=== PATIENT | female | born 1950 | race Caucasian/White ===

== ENCOUNTER 2023-01-22 09:56 | Inpatient (IN) | payer MEDICARE ==
[2023-01-22 10:49] LABS: Basophils % (A) 1 %; Eosinophils % (A) 1 %; HCT 39.7 % (34.0-46.0); HGB 13.4 gm/dL (11.4-16.0); Lymphocytes % (A) 29 %; MCH 31.9 pg (25.0-35.0); MCHC 33.7 g/dL (31.0-37.0); MCV 94.8 fL (80.0-100.0); Mean Platelet Volume 7.9; Monocytes # (A) 0.2 k/uL (0-1.0); Monocytes % (A) 6 %; Neutrophils # (A) 2.2 k/uL (1.3-7.7); Neutrophils % (A) 62 %; Platelet Count 210 k/uL (150-450); RBC 4.19 m/uL (3.80-5.40); WBC 3.6 k/uL (3.8-10.6)
--- NOTE | 2023-01-22 10:51 | XR ---
EXAMINATION TYPE: XR chest 2V DATE OF EXAM: 01/22/2023 COMPARISON: NONE HISTORY: Chest pressure. TECHNIQUE: Frontal and lateral views of the chest are obtained. FINDINGS: There is no focal air space opacity, pleural effusion, or pneumothorax seen. The cardiac silhouette size is within normal limits. The osseous structures are intact. IMPRESSION: No acute cardiopulmonary process.
[2023-01-22 11:03] LABS: INR 0.9 (<1.2)
[2023-01-22 11:04] LABS: Partial Thromboplastin Time 22.7 sec (22.0-30.0); Prothrombin Time 10.4 sec (10.0-12.5)
[2023-01-22 11:05] LABS: ALT 27 U/L (4-34); AST 28 U/L (14-36); African American GFR (CKD) 87 (>60 ml/min/1.73 sqM); Albumin 4.2 g/dL (3.5-5.0); Alkaline Phosphatase 81 U/L (38-126); Anion Gap 6 mmol/L; Blood Urea Nitrogen 19 mg/dL (7-17); Calcium 9.3 mg/dL (8.4-10.2); Carbon Dioxide 28 mmol/L (22-30); Chloride 105 mmol/L (98-107); Glucose 101 mg/dL (74-99); Magnesium 1.9 mg/dL (1.6-2.3); Non-African American GFR(CKD) 75 (>60 ml/min/1.73 sqM); Potassium 4.1 mmol/L (3.5-5.1); Sodium 139 mmol/L (137-145); Total Bilirubin 0.6 mg/dL (0.2-1.3); Total Protein 6.9 g/dL (6.3-8.2)
[2023-01-22 11:12] LABS: NT-Pro-B-Type Natriuretic Pept 151 pg/mL
--- NOTE | 2023-01-22 11:56 | ED ---
Chest Pain HPI - General Chief Complaint: Chest Pain Stated Complaint: chest pain Time Seen by Provider: 01/22/23 09:59 Source: patient, EMS - History of Present Illness Initial Comments: 72-year-old female with past history of hypertension presents to the emergency department reporting chest pain. States that she has had left-sided chest pain for a long time. It makes her short of breath. States that the shortness of breath was previously only with exertion however her shortness of breath has now become with arrests. She denies any history of cardiac issues. No history of DVT or PE. She did see her primary care earlier this week and told them about the chest pain. They told her that she needed to come to the hospital should she have recurrence of her symptoms. She does not have any cardiac history however her father did in his 50s due to a sudden heart attack. Patient describes the pain as a pressure sensation. This morning she awoke at 5 AM with significant chest pain that she states is somewhat more severe in nature than what she has been previously experiencing. She has not had a cardiac workup. She denies fevers, chills or cough. No numbness or tingling in her extremities. EMS provided the patient with aspirin and 2 nitros en route to the hospital. No other alleviating, precipitating or modifying factors - Related Data Home Medications Medication Instructions Recorded Confirmed atenoloL 100 mg PO DAILY 01/22/23 01/22/23 Allergies Allergy/AdvReac Type Severity Reaction Status Date / Time latex Allergy Rash/Hives Verified 01/22/23 11:10 Review of Systems ROS Statement: Those systems with pertinent positive or pertinent negative responses have been documented in the HPI. ROS Other: All systems not noted in ROS Statement are negative. Past Medical History Past Medical History: Hypertension History of Any Multi-Drug Resistant Organisms: None Reported Past Psychological History: No Psychological Hx Reported Smoking Status: Never smoker Past Alcohol Use History: None Reported Past Drug Use History: None Reported General Exam General appearance: alert, in no apparent distress Head exam: Present: atraumatic, normocephalic, normal inspection Eye exam: Present: normal appearance, PERRL, EOMI. Absent: scleral icterus, conjunctival injection, periorbital swelling ENT exam: Present: normal exam, mucous membranes moist Neck exam: Present: normal inspection. Absent: tenderness, meningismus, lymphadenopathy Respiratory exam: Present: normal lung sounds bilaterally. Absent: respiratory distress, wheezes, rales, rhonchi, stridor Cardiovascular Exam: Present: regular rate, normal rhythm, normal heart sounds. Absent: systolic murmur, diastolic murmur, rubs, gallop, clicks GI/Abdominal exam: Present: soft, normal bowel sounds. Absent: distended, tenderness, guarding, rebound, rigid Extremities exam: Present: normal inspection, full ROM, normal capillary refill. Absent: tenderness, pedal edema, joint swelling, calf tenderness Back exam: Present: normal inspection Neurological exam: Present: alert, oriented X3, CN II-XII intact Psychiatric exam: Present: normal affect, normal mood Skin exam: Present: warm, dry, intact, normal color. Absent: rash Course Vital Signs 01/22/23 01/22/23 10:01 13:03 Temperature 98 F Pulse Rate 66 58 L Respiratory 18 14 Rate Blood Pressure 165/104 138/85 O2 Sat by Pulse 99 98 Oximetry Chest Pain MDM - MDM Was pt. sent in by a medical professional or institution (JOHAN Lin, MANUAL MACHINIST, urgent care, hospital, or group home...) When possible be specific @ -No Did you speak to anyone other than the patient for history (EMS, parent, family, police, friend...)? What history was obtained from this source @ -EMS Did you review nursing and triage notes (agree or disagree)? Why? @ -I reviewed and agree with nursing and triage notes Were old charts reviewed (outside hosp., previous admission, EMS record, old EKG, old radiological studies, urgent care reports/EKG's, group home records)? Report findings @ -No old charts were reviewed Differential Diagnosis (chest pain, altered mental status, abdominal pain women, abdominal pain men, vaginal bleeding, weakness, fever, dyspnea, syncope, headache, dizziness, GI bleed, back pain, seizure, CVA, palpatations, mental health, musculoskeletal)? @ -Differential Chest Pain: Stable Angina, Unstable Angina, STEMI, NSTEMI Aortic Dissection, Pneumothorax, Musculoskeletal, Esophageal Spasm GERD, Cholecystitis, Pancreatitis, Zoster, this is not meant to be an all-inclusive list. EKG interpreted by me (3pts min.). @ -yes and demonstrates sinus bradycardia with a rate of 57. AL interval 167. QRS is 93. QTC of 440. No acute ST segment elevation or depression X-rays interpreted by me (1pt min.). @ -Yes and demonstrates no acute process CT interpreted by me (1pt min.). @ -None done U/S interpreted by me (1pt. min.). @ -None done What testing was considered but not performed or refused? (CT, X-rays, U/S, labs)? Why? @ -None What meds were considered but not given or refused? Why? @ -None Did you discuss the management of the patient with other professionals (professionals i.e. DrJose, PA, MANUAL MACHINIST, lab, RT, psych nurse, social sciences department chair, reduction plant supervisor, teacher, customs patrol officer, field nurse case manager)? Give summary @ -Dr. Gomez who will admit patient Was smoking cessation discussed for >3mins.? @ -No Was critical care preformed (if so, how long)? @ -No Were there social determinants of health that impacted care today? How? (Homelessness, low income, unemployed, alcoholism, drug addiction, transportation, low edu. Level, literacy, decrease access to med. care, nursing home, rehab)? @ -No Was there de-escalation of care discussed even if they declined (Discuss DNR or withdrawal of care, Hospice)? DNR status @ -No What co-morbidities impacted this encounter? (DM, HTN, Smoking, COPD, CAD, Cancer, CVA, ARF, Chemo, Hep., AIDS, mental health diagnosis, sleep apnea, morbid obesity)? @ -hypertension Was patient admitted / discharged? Hospital course, mention meds given and route, prescriptions, significant lab abnormalities, going to OR and other pertinent info. @ -Admitted. Upon arrival patient was placed into room 8. Thorough history and physical exam was performed. Symptoms are concerning for unstable angina. 12-lead EKG is obtained. Patient remains on continuous pulse ox and cardiac monitoring. 12-lead EKG is within normal limits. Chest x-ray demonstrates no acute process. I did recommend overnight observation for further cardiac workup which the patient agreed to. I spoke with Dr. Gomez who was willing to keep the patient. Patient's awaiting a bed on the floor in stable condition Undiagnosed new problem with uncertain prognosis? @ -Yes Drug Therapy requiring intensive monitoring for toxicity (Heparin, Nitro, Insulin, Cardizem)? @ -No Were any procedures done? @ -No Diagnosis/symptom? @ -Acute chest pain, possible ACS Acute, or Chronic, or Acute on Chronic? @ -Acute Uncomplicated (without systemic symptoms) or Complicated (systemic symptoms)? @ -Complicated Side effects of treatment? @ -No Exacerbation, Progression, or Severe Exacerbation? @ -No Poses a threat to life or bodily function? How? (Chest pain, [place], [place], pneumonia, PE, COPD, DKA, ARF, appy, cholecystitis, CVA, Diverticulitis, Homicidal, Suicidal, threat to staff... and all critical care pts) @ -Yes as patient presents with chest pain Disposition Clinical Impression: Chest pain Disposition: ADMITTED IP TO THIS [facility] Condition: Stable Is patient prescribed a controlled substance at d/c from ED?: No Time of Disposition: 12:26 Decision to Admit Reason: Admit from EC Decision Date: 01/22/23 Decision Time: 12:26
[2023-01-22] MEDS ORDERED: NALOXONE 0.4 MG/ML 1 ML VIAL IV PRN (12:27)
--- NOTE | 2023-01-22 13:43 | P.HPIM ---
History of Present Illness Patient is a pleasant 72-year-old female came in with the complaints of chest pain on and off has been going on for last few days in the midsternal area radiates to the back, along with associated lightheadedness denied any diaphores is. Patient believes that the this pain may have radiated to the jaw patient has mild to moderate pain. Patient has family history of coronary artery disease in her dad at age 67. Troponins are negative EKG did not show any ST-T wave changes. Patient also has neck issues. Patient has been in having stress at home as well recently and she believes that may have contributed to her symptoms. REVIEW OF SYSTEMS: CONSTITUTIONAL: No fever, no malaise, no fatigue. HEENT: No recent visual problems or hearing problems. Denied any sore throat. CARDIOVASCULAR: No orthopnea, PND, no palpitations, no syncope. PULMONARY: No shortness of breath, no cough, no hemoptysis. GASTROINTESTINAL: No diarrhea, no nausea, no vomiting, no abdominal pain. NEUROLOGICAL: No headaches, no weakness, no numbness. HEMATOLOGICAL: Denies any bleeding or petechiae. GENITOURINARY: Denies any burning micturition, frequency, or urgency. MUSCULOSKELETAL/RHEUMATOLOGICAL: Denies any joint pain, swelling, or any muscle pain. ENDOCRINE: Denies any polyuria or polydipsia. The rest of the 14-point review of systems is negative. PHYSICAL EXAMINATION: GENERAL: The patient is alert and oriented x3, not in any acute distress. Well developed, well nourished. HEENT: Pupils are round and equally reacting to light. EOMI. No scleral icterus. No conjunctival pallor. Normocephalic, atraumatic. No pharyngeal erythema. No thyromegaly. CARDIOVASCULAR: S1 and S2 present. No murmurs, rubs, or gallops. PULMONARY: Chest is clear to auscultation, no wheezing or crackles. ABDOMEN: Soft, nontender, nondistended, normoactive bowel sounds. No palpable organomegaly. MUSCULOSKELETAL: No joint swelling or deformity. EXTREMITIES: No cyanosis, clubbing, or pedal edema. NEUROLOGICAL: Gross neurological examination did not reveal any focal deficits. SKIN: No rashes. Assessment and plan -Chest pain: We will rule out a concurrent syndromes with a repeat troponins and EKGs. Patient the chest pain appears to be mostly atypical appears to be musculoskeletal in nature cardiology will evaluate the patient. -Hypertension patient is on atenolol which will be resumed believing that the patient will undergo nuclear stress test if deemed necessary by cardiology. DVT prophylaxis: Early ambulation Past Medical History Past Medical History: Hypertension History of Any Multi-Drug Resistant Organisms: None Reported Past Psychological History: No Psychological Hx Reported Smoking Status: Never smoker Past Alcohol Use History: None Reported Past Drug Use History: None Reported Medications and Allergies Home Medications Medication Instructions Recorded Confirmed Type atenoloL 100 mg PO DAILY 01/22/23 01/22/23 History Allergies Allergy/AdvReac Type Severity Reaction Status Date / Time latex Allergy Rash/Hives Verified 01/22/23 11:10 Physical Exam Vitals: Vital Signs Temp Pulse Resp BP Pulse Ox 01/22/23 13:03 58 L 14 138/85 98 01/22/23 10:01 98 F 66 18 165/104 99 Intake and Output 01/21/23 01/22/23 01/22/23 22:59 06:59 14:59 Other: Weight 74.843 kg Results CBC & Chem 7: 01/22/23 10:20 01/22/23 10:20 Labs: Abnormal Lab Results - Last 24 Hours (Table) 01/22/23 01/22/23 Range/Units 10:20 10:20 WBC 3.6 L (3.8-10.6) k/uL BUN 19 H (7-17) mg/dL Glucose 101 H (74-99) mg/dL
--- NOTE | 2023-01-23 08:27 | P.CRDCN ---
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 She has a past medical history of hypertension. Patient states that she has had chest pain all the time but not pressure. She states she woke up at 5 AM with a pressure type sensation along with difficulty breathing and cough. Patient states that she is feeling normal at this time of evaluation. EKG sinus rhythm with poor R-wave progression Chest x-ray: No acute findings WBC 3.6 hemoglobin 13.4. Electrolytes normal. BUN 19 creatinine 0.8. Troponin negative 3. Glucose 101. The knees and 1.9. Liver function tests normal. Home cardiac medications: Atenolol 100 mg daily Review Of Systems: At the time of my evaluation: Constitutional: No fever, no chills. No weakness, fatigue or lethargy. EENT: No headache. No dizziness. Lungs: No shortness of breath, cough, no sputum production. No wheezing. Cardiovascular: No chest pain, no lower extremity edema. No palpitations. No paroxysmal nocturnal dyspnea. No orthopnea. No lightheadedness or dizziness. No syncopal episodes. Abdominal: No abdominal pain. No nausea, vomiting. No diarrhea. No constipation. No bloody or tarry stools. Genitourinary: No dysuria.. No urinary retention. Musculoskeletal: No myalgias. No muscle weakness, no frequent falls. No back pain. No neck pain. Integumentary: No wounds. No rash. No unusual bruising. Neurologic: No aphasia. No facial droop. No change in mentation. No head injury. No headache. Physical examination: Gen: This is a 72-year-old female. She is resting but appears to be comfortable and in no acute distress. VS: reviewed HEENT: Head is atraumatic, normocephalic. Pupils equal, round. Sclerae is anicteric. NECK: Supple. No JVD. LUNGS: Clear to auscultation. No wheezes or rhonchi. No intercostal retractions. HEART: Regular rate and rhythm. No murmur. ABDOMEN: Soft No tenderness. EXTREMITIES: No pedal edema. No calf tenderness. NEUROLOGICAL: Patient is awake, alert and oriented x3. Assessment: Atypical chest pain Hypertension Plan: Continue atenolol Obtain stress echo. Obtain 2-D echocardiogram and Doppler study to assess cardiac structure and function If testing is unremarkable, patient will be cleared for discharged home today. Thank you kindly for this consultation. Nurse practitioner note has been reviewed, I agree with documented findings and plan of care. Patient was seen and examined. Past Medical History Past Medical History: Hypertension History of Any Multi-Drug Resistant Organisms: None Reported Past Surgical History: Cholecystectomy Past Psychological History: No Psychological Hx Reported Smoking Status: Never smoker Past Alcohol Use History: None Reported Past Drug Use History: None Reported Medications and Allergies Home Medications Medication Instructions Recorded Confirmed Type atenoloL 100 mg PO DAILY 01/22/23 01/22/23 History Allergies Allergy/AdvReac Type Severity Reaction Status Date / Time latex Allergy Rash/Hives Verified 01/22/23 11:10 Physical Exam Vitals: Vital Signs Temp Pulse Pulse Resp BP BP Pulse Ox 01/23/23 07:00 97.8 F 52 L 16 136/78 98 01/23/23 01:57 98.1 F 65 17 102/60 98 01/22/23 20:48 97.6 F 62 15 151/81 98 01/22/23 16:19 53 L 14 142/81 97 01/22/23 13:03 58 L 14 138/85 98 01/22/23 10:01 98 F 66 18 165/104 99 Intake and Output 01/22/23 01/23/23 01/23/23 22:59 06:59 14:59 Other: # Voids 2 2 Results 01/22/23 10:20 01/22/23 10:20 Cardiac Enzymes 01/22/23 01/22/23 01/22/23 Range/Units 10:20 10:20 15:27 AST 28 (14-36) U/L Troponin I <0.012 <0.012 (0.000-0.034) ng/mL 01/22/23 Range/Units 17:37 AST (14-36) U/L Troponin I <0.012 (0.000-0.034) ng/mL Coagulation 01/22/23 Range/Units 10:20 PT 10.4 (10.0-12.5) sec APTT 22.7 (22.0-30.0) sec CBC 01/22/23 Range/Units 10:20 WBC 3.6 L (3.8-10.6) k/uL RBC 4.19 (3.80-5.40) m/uL Hgb 13.4 (11.4-16.0) gm/dL Hct 39.7 (34.0-46.0) % Plt Count 210 (150-450) k/uL Comprehensive Metabolic Panel 01/22/23 Range/Units 10:20 Sodium 139 (137-145) mmol/L Potassium 4.1 (3.5-5.1) mmol/L Chloride 105 (98-107) mmol/L Carbon Dioxide 28 (22-30) mmol/L BUN 19 H (7-17) mg/dL Creatinine 0.80 (0.52-1.04) mg/dL Glucose 101 H (74-99) mg/dL Calcium 9.3 (8.4-10.2) mg/dL AST 28 (14-36) U/L ALT 27 (4-34) U/L Alkaline Phosphatase 81 (38-126) U/L Total Protein 6.9 (6.3-8.2) g/dL Albumin 4.2 (3.5-5.0) g/dL Current Medications Generic Name Dose Route Start Last Admin Trade Name Freq PRN Reason Stop Dose Admin Atenolol 100 mg 01/23/23 09:00 Atenolol 50 Mg Tab PO DAILY KAILASH Naloxone HCl 0.2 mg 01/22/23 12:27 Naloxone 0.4 Mg/Ml 1 Ml Vial IV Q2M PRN Opioid Reversal Intake and Output 01/22/23 01/23/23 01/23/23 22:59 06:59 14:59 Other: # Voids 2 2 01/22/23 10:20 01/22/23 10:20
[2023-01-23] MEDS ORDERED: atenoloL 50 MG TAB PO SCH (09:00)
--- NOTE | 2023-01-23 11:41 | CA ---
Transthoracic Echo Report Name: Felisha Croft Age: 72 Gender: F : 1950 Exam Date: 01/23/2023 10:48 Exam Location: [facility] Ht (in): 62 Wt (lb): 165 Ordering Physician: Patt Ferrell DO Attending/Referring Phys: [id number], Ghassan Development Scientist Marian Johnson RDCS Procedure CPT: Indications: Chest Pain Cardiac Hx: Technical Quality: Fair Contrast 1: Total Dose (mL): Contrast 2: Total Dose (mL): MEASUREMENTS (Male / Female) Normal Values 2D ECHO LV Diastolic Diameter PLAX 3.6 cm 4.2 - 5.9 / 3.9 - 5.3 cm LV Systolic Diameter PLAX 2.3 cm IVS Diastolic Thickness 1.3 cm 0.6 - 1.0 / 0.6 - 0.9 cm LVPW Diastolic Thickness 1.3 cm 0.6 - 1.0 / 0.6 - 0.9 cm LV Relative Wall Thickness 0.8 LA Volume 65.7 cm??? 18 - 58 / 22 - 52 cm??? LA Volume Index 35.8 cm???/m??? 16 - 28 cm???/m??? M-MODE Aortic Root Diameter MM 2.8 cm LA Systolic Diameter MM 4.4 cm LA Ao Ratio MM 1.6 AV Cusp Separation MM 1.3 cm DOPPLER AV Peak Velocity 166.0 cm/s AV Peak Gradient 11.0 mmHg AV Mean Velocity 117.5 cm/s AV Mean Gradient 6.0 mmHg AV Velocity Time Integral 34.9 cm AI Peak Velocity 385.6 cm/s AI Peak Gradient 59.5 mmHg AI Pressure Half Time 583.5 ms LVOT Peak Velocity 99.0 cm/s LVOT Peak Gradient 3.9 mmHg LVOT Velocity Time Integral 21.8 cm MV Area PHT 3.0 cm??? Mitral E Point Velocity 72.6 cm/s Mitral A Point Velocity 104.7 cm/s Mitral E to A Ratio 0.7 MV Deceleration Time 255.1 ms MV E' Velocity 4.9 cm/s Mitral E to MV E' Ratio 14.8 TR Peak Velocity 260.1 cm/s TR Peak Gradient 27.1 mmHg Right Ventricular Systolic Press 32.1 mmHg FINDINGS Left Ventricle Moderately increased left ventricular wall thickness. Left ventricular cavity size normal. Normal left ventricular systolic function with no obvious regional wall motion abnormalities. Left ventricular ejection fraction is estimated at 55-60 %. Right Ventricle Normal right ventricular size and function. Right ventricular systolic pressure within normal limits. Right Atrium Normal right atrial size. Left Atrium Moderately increased left atrial volume. Mildly increased left atrial area. Interatrial septal aneurysm. Probable patent foramen ovale. Mitral Valve Structurally normal mitral valve. Mitral valve thickened. Mild mitral annular calcification. [id number] mitral regurgitation. Aortic Valve Trileaflet aortic valve. No aortic stenosis. Mild aortic regurgitation. Tricuspid Valve Structurally normal tricuspid valve. Mild tricuspid regurgitation. Pulmonic Valve Structurally normal pulmonic valve. Trace pulmonic regurgitation. Pericardium No pericardial effusion. Aorta Normal size aortic root and proximal ascending aorta. CONCLUSIONS Normal LV systolic function Aneurysmal interatrial septum Mild to moderate mitral regurgitation Possible [id number] shunt across intra-atrial septum Mild aortic regurgitation Previewed by: Dr. Chano Soni MD (Electronically Signed) Final Date: 23 January 2023 11:40
--- NOTE | 2023-01-23 12:32 | CA ---
Stress Echo Report Felisha Croft Age: 72 Gender: F : 1950 Exam Date: 01/23/2023 10:28 Exam Location: [place] [facility] Ht (in): 62 Wt (lb): 165 Ordering Physician: Oriana Ashby Referring Physician: [id number] Substance Abuse Nurse: Calvin Booker Technologist Procedure CPT: Indication: CP ICD-9 Codes: Rhythm: Patient History: Cardiac Medications: SEE CHART Medications in past 24 hours: Contrast: N/A Stress Results Protocol: Ameya Total dose(mL): Exercise Duration (min:sec): 7:[address] Depression (mm): Angina Score: Brandon Score: METS: 8.3 Resting HR: 80 Resting BP: 111 / 67 Peak HR: 119 Peak BP: 210 / 86 Max Predicted HR: 150 79 % Max Predicted HR Target HR: 128 Double Product: [id number] Stress Summary: BP Response: Reason for Termination: DIZZINESS/NEAR SYNCOPE Cardiac Symptoms: DIZZINESS/NEAR SYNCOPE ECG Analysis Resting ECG: Normal sinus rhythm normal axis normal intervals Stress ECG: Patient exercised on Ameya protocol for 7 minutes achieving 80% of predicted maximal heart rate without chest pain or diagnostic ST segment depression Arrhythmia: Echo Analysis Resting Echo: Normal left ventricular size wall motion systolic function Peak Echo Analysis: Post exercise there is exercise induced wall motion abnormality involving basilar inferior wall and inferoseptum MEASUREMENTS (Male/Female) Normal Values CONCLUSIONS Abnormal stress echo showing exercise induced wall motion abnormality involving right coronary artery distribution Dr. Chano Soni MD (Electronically Signed) Final Date: 23 January 2023 12:31
[2023-01-23] MEDS ORDERED: NITROGLYCERIN SL TABS 0.4 MG TAB SUBLINGUAL PRN (12:37)
[2023-01-23] MEDS ORDERED: ALPRAZolam 0.5 MG TAB PO PRN (12:37)
[2023-01-23] MEDS ORDERED: ALPRAZolam 0.25 MG TAB PO PRN (12:37)
[2023-01-23] MEDS ORDERED: ATORVASTATIN 80 MG TAB PO STA (12:37)
[2023-01-23] MEDS ORDERED: ASPIRIN 325 MG TAB PO STA (12:37)
[2023-01-23] MEDS: ATORVASTATIN 40 MG TAB PO SCH (13:22)
[2023-01-23] MEDS: ASPIRIN 81 MG PO SCH (13:22)
[2023-01-23 16:26] LABS: Chol/HDL Ratio 2.78 Ratio; LDL Cholesterol,Calculated 116.3 mg/dL (0.0-131.0); VLDL Calculation 13.56 mg/dL (5.00-40.00)
[2023-01-24 04:35] VITALS: RESP 16
--- NOTE | 2023-01-24 06:02 | P.PN ---
Subjective Progress Note Date: 01/23/23 Patient is a pleasant 72-year-old female came in with the complaints of chest pain on and off has been going on for last few days in the midsternal area radiates to the back, along with associated lightheadedness denied any diaphoresis. Patient believes that the this pain may have radiated to the jaw patient has mild to moderate pain. Patient has family history of coronary artery disease in her dad at age 67. Troponins are negative EKG did not show any ST-T wave changes. Patient also has neck issues. Patient has been in having stress at home as well recently and she believes that may have contri buted to her symptoms. 01.23.2023 Patient evaluated today states the chest discomfort has improved from overnight. Patient is going for a stress test today. REVIEW OF SYSTEMS: CONSTITUTIONAL: No fever, no malaise, no fatigue. HEENT: No recent visual problems or hearing problems. Denied any sore throat. CARDIOVASCULAR: No orthopnea, PND, no palpitations, no syncope. PULMONARY: No shortness of breath, no cough, no hemoptysis. GASTROINTESTINAL: No diarrhea, no nausea, no vomiting, no abdominal pain. NEUROLOGICAL: No headaches, no weakness, no numbness. PHYSICAL EXAMINATION: GENERAL: The patient is alert and oriented x3, not in any acute distress. Well developed, well nourished. HEENT: Pupils are round and equally reacting to light. EOMI. No scleral icterus. No conjunctival pallor. Normocephalic, atraumatic. No pharyngeal erythema. No thyromegaly. CARDIOVASCULAR: S1 and S2 present. No murmurs, rubs, or gallops. PULMONARY: Chest is clear to auscultation, no wheezing or crackles. ABDOMEN: Soft, nontender, nondistended, normoactive bowel sounds. No palpable organomegaly. MUSCULOSKELETAL: No joint swelling or deformity. EXTREMITIES: No cyanosis, clubbing, or pedal edema. NEUROLOGICAL: Gross neurological examination did not reveal any focal deficits. SKIN: No rashes. Assessment and plan -Chest pain: We will rule out ACS with a repeat troponins and EKGs. Patient the chest pain appears to be mostly atypical, cardiology recommending stress test -Hypertension patient is on atenolol which will be decreased due to the sinus bradycardia. DVT prophylaxis: Early ambulation The impression and plan of care has been dictated by Cori White Nurse Practitioner as directed. Dr. Patricia MD I have performed a history and physical examination and medical decision making of this patient, discussed the same with the dictator, and agree with the dictators assessment and plan as written, documented as a scribe. Based on total visit time, I have performed more than 50% of this visit. Objective - Vital Signs Vital signs: Vital Signs Temp 98.2 F 01/24/23 03:03 Pulse 74 01/24/23 03:03 Resp 16 01/24/23 03:03 BP 124/67 01/24/23 03:03 Pulse Ox 98 01/24/23 03:03 FiO2 Intake & Output 01/23/23 01/23/23 01/24/23 06:59 18:59 06:59 Intake Total 476 Balance 476 Intake: Oral 476 Other: # Voids 2 2 2 - Labs CBC & Chem 7: 01/22/23 10:20 01/22/23 10:20 Labs: Abnormal Lab Results - Last 24 Hours (Table) 01/23/23 Range/Units 12:40 Cholesterol 203.00 H (0.00-200.00) mg/dL HDL Cholesterol 73.10 H (40.00-60.00) mg/dL Assessment and Plan Time with Patient: Less than 30
[2023-01-24] MEDS ORDERED: HEPARIN SODIUM,PORCINE 10,000 UNIT in SODIUM CHLORIDE 0.9% 1,000 ML IRRIGATION PRN (07:00)
[2023-01-24] MEDS ORDERED: HEPARIN SODIUM,PORCINE (1 ML) 2,500 UNIT in SODIUM CHLORIDE 0.9% 250 ML IRRIGATION PRN (07:00)
[2023-01-24] MEDS: ATORVASTATIN 40 MG TAB PO SCH (08:30)
[2023-01-24] MEDS: ASPIRIN 81 MG PO SCH (08:30)
[2023-01-24] MEDS ORDERED: atenoloL 50 MG TAB PO SCH (09:00)
[2023-01-24 09:12] LABS: HCT 43.2 % (34.0-46.0); HGB 14.8 gm/dL (11.4-16.0); MCH 32.5 pg (25.0-35.0); MCHC 34.2 g/dL (31.0-37.0); Mean Platelet Volume 7.7; Platelet Count 195 k/uL (150-450); RBC 4.55 m/uL (3.80-5.40); RDW 11.8 % (11.5-15.5); WBC 2.9 k/uL (3.8-10.6)
--- NOTE | 2023-01-24 09:18 | P.PN ---
Subjective Progress Note Date: 01/24/23 History of present illness: This is a 72-year-old female with no previous cardiac history does not follow with casework manager. She has a past medical history of hypertension. Patient states that she has had chest pain all the time but not pressure. She states she woke up at 5 AM with a pressure type sensation along with difficulty breathing and cough. Patient states that she is feeling normal at this time of evaluation. EKG sinus rhythm with poor R-wave progression Chest x-ray: No acute findings WBC 3.6 hemoglobin 13.4. Electrolytes normal. BUN 19 creatinine 0.8. Troponin negative 3. Glucose 101. The knees and 1.9. Liver function tests normal. Home cardiac medications: Atenolol 100 mg daily 01/24 Patient had stress echo done yesterday which was abnormal and is scheduled for cardiac catheterization today. This has been explained to the patient in detail and she is agreeable to move forward. Vital signs have been stable. Patient denies having any chest pain at this time. Echocardiogram reveals normal LV systolic function. 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 Mild to moderate mitral regurgitation. Possible [id number] shunt across the interatrial septum. Mild aortic regurgitation. Lipid panel reveals triglycerides 67, cholesterol 203, LDL 116, HDL 73. Physical examination: Gen: This is a 72-year-old female. She is resting but appears to be comfortable and in no acute distress. VS: reviewed HEENT: Head is atraumatic, normocephalic. Pupils equal, round. Sclerae is anicteric. NECK: Supple. No JVD. LUNGS: Clear to auscultation. No wheezes or rhonchi. No intercostal retractions. HEART: Regular rate and rhythm. No murmur. ABDOMEN: Soft No tenderness. EXTREMITIES: No pedal edema. No calf tenderness. NEUROLOGICAL: Patient is awake, alert and oriented x3. Assessment: Atypical chest pain Hypertension Plan: Continue atenolol Start patient on aspirin 81 mg daily, atorvastatin 40 mg daily Patient is scheduled for cardiac catheterization today with Dr. Tiffanie Soni. Nurse practitioner note has been reviewed, I agree with documented findings and plan of care. Patient was seen and examined. Objective - Vital Signs Vital signs: Vital Signs Temp 98.2 F 01/24/23 03:03 Pulse 74 01/24/23 03:03 Resp 16 01/24/23 03:03 BP 124/67 01/24/23 03:03 Pulse Ox 98 01/24/23 03:03 FiO2 Intake & Output 01/23/23 01/24/23 01/24/23 18:59 06:59 18:59 Intake Total 476 Balance 476 Intake: Oral 476 Other: # Voids 2 2 - Labs CBC & Chem 7: 01/24/23 08:35 01/22/23 10:20 Labs: Abnormal Lab Results - Last 24 Hours (Table) 01/23/23 Range/Units 12:40 Cholesterol 203.00 H (0.00-200.00) mg/dL HDL Cholesterol 73.10 H (40.00-60.00) mg/dL
[2023-01-24 09:34] LABS: African American GFR (CKD) 86 (>60 ml/min/1.73 sqM); Anion Gap 10 mmol/L; Blood Urea Nitrogen 21 mg/dL (7-17); Calcium 9.4 mg/dL (8.4-10.2); Carbon Dioxide 24 mmol/L (22-30); Chloride 106 mmol/L (98-107); Glucose 101 mg/dL (74-99); Non-African American GFR(CKD) 74 (>60 ml/min/1.73 sqM); Potassium 4.2 mmol/L (3.5-5.1); Sodium 140 mmol/L (137-145)
[2023-01-24] MEDS ORDERED: VERAPAMIL 2.5 MG/ML 2 ML AMP ONE (10:58)
[2023-01-24] MEDS ORDERED: fentaNYL (PF) 50 MCG/ML 2 ML AMP ONE (10:59)
[2023-01-24] MEDS ORDERED: IV FLUID CONTINUATION 1,000 ML IV ONE (11:18)
[2023-01-24] MEDS ORDERED: fentaNYL (PF) 50 MCG/ML 2 ML AMP IVP ONE (11:30)
[2023-01-24] MEDS ORDERED: MIDAZOLAM 2 MG/2 ML VIAL IVP ONE (11:31)
[2023-01-24] MEDS ORDERED: LIDOCAINE 1% INJ 10MG/ML (30 ML VIAL-PF) SQ ONE (11:32)
[2023-01-24] MEDS ORDERED: VERAPAMIL SYRINGE (5 MG/10 ML) INTRAARTER ONE (11:34)
[2023-01-24] MEDS ORDERED: HEPARIN SODIUM 1,000 UN/ML (10ML VL) IV ONE (11:37)
[2023-01-24] MEDS ORDERED: IOPAMIDOL-370 100ML BTL INJ ONE (11:47)
[2023-01-24] MEDS ORDERED: RX INFO: IV CONTRAST WAS GIVEN 1 EACH MISC MISCELLANE PRN (12:06)
--- NOTE | 2023-01-24 12:34 | CC ---
CARDIAC CATHETERIZATION REPORT INDICATIONS: Chest pain with abnormal stress echo. PROCEDURE NOTE: After obtaining informed consent, left heart catheterization and coronary angiogram were performed via the right radial artery using standard Bushra catheters. The patient tolerated the procedure well without any obvious immediate complications, received moderate conscious sedation. Total sedation time was 20 minutes. Right radial artery access was obtained using Seldinger technique, 6-Slovenian sheath was placed. Catheters and wires were floated into the ascending aorta under fluoroscopic guidance. The patient received verapamil and heparin per protocol and a TR band will be used for hemostasis. FINDINGS: 1. Hemodynamics: Left ventricular end-diastolic pressure is 16 mm. There is no significant gradient across the aortic valve. 2. Left Ventriculogram: Left ventriculogram is not performed. 3. Angiographic Data: a.Right Coronary Artery: Right coronary artery is a large dominant vessel and is free of significant stenosis. Left main coronary artery is a normal-sized vessel and it is free of disease, divides into left anterior descending coronary artery and circumflex coronary artery. LAD and its branches, circumflex coronary artery and its branches are free of significant stenosis. CONCLUSION: 1. Normal coronary arteries. 2. False-positive stress echo. PLAN: Patient's management is going to be in the form of risk factor modification and optimal medical therapy. MMODL / IJN: [id number] /
--- NOTE | 2023-01-24 12:44 | LTR ---
Dear Michele: I performed cardiac catheterization on Felisha Croft. The detailed catheterization note is enclosed for your records. In brief, the cardiac catheterization did not reveal significant obstructive CAD. The patient's chest pain is noncardiac in origin and the stress echo is a false-positive stress test. Thank you for giving me the privilege of participating in the care of this pleasant lady. Sincerely, MARCOS / MATILDE: [id number] /
[2023-01-24 16:39] VITALS: BP 138/79; TEMP 97.7
[2023-01-24 17:52] VITALS: PULSE 62
--- NOTE | 2023-01-25 13:20 | P.DS ---
Providers Date of admission: 01/24/23 09:47 Attending physician: Joseph Gomez Consults: 01/22/23 12:27 Consult Physician Urgent Consulting Provider: [facility] Consult Reason/Comments: acute chest pain, possible acs Do you want consulting provider notified?: Yes Primary care physician: Michele Fritz Hospital Course: Final Diagnosis -Chest pain: cath reveals normal coronary chest pain is likely non cardiac in nature -Hypertension patient is on atenolol which will be decreased due to the sinus bradycardia. Full Code Discharge Disposition Stable for discharge home. Atenolol is decreased. Patient has been cleared by cardiology. Recommending to see PCP in 1 to 2 days. Hospital Course Patient is a pleasant 72-year-old female came in with the complaints of chest pain on and off has been going on for last few days in the midsternal area radiates to the back, along with associated lightheadedness denied any diaphoresis. Patient believes that the this pain may have radiated to the jaw patient has mild to moderate pain. Patient has family history of coronary artery disease in her dad at age 67. Troponins are negative EKG did not show any ST-T wave changes. Patient also has neck issues. Patient has been in having stress at home as well recently and she believes that may have contributed to her symptoms. WBC 3.6 hemoglobin 13.4. Electrolytes normal. BUN 19 creatinine 0.8. Troponin negative 3. Glucose 101. The knees and 1.9. Liver function tests normal. Patient had stress echo done which was abnormal and is scheduled for cardiac catheterization. Echocardiogram reveals normal LV systolic function. 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 Mild to moderate mitral regurgitation. Possible [id number]-[id number] shunt across the interatrial septum. Mild aortic regurgitation. Lipid panel reveals triglycerides 67, cholesterol 203, LDL 116, HDL 73. Chest pain resolved. Cardiac cath reveals normal coronary arteries and false positive stress echo. Atenolol has been decreased to 50 mg daily. Patients lungs are clear, S1 S2 auscultated, abdomen is soft and nontender. Alert x 3 no focal deficits. Cleared by cardiology. Patient will be discharged home. Please see medication reconciliation for a list of current medication. Thank you for allowing us to participate in the care of this patient. The impression and plan of care has been dictated by Cori White, Nurse Practitioner as directed. Dr. Patricia MD I have performed a history and physical examination and medical decision making of this patient, discussed the same with the dictator, and agree with the dictators assessment and plan as written, documented as a scribe. Based on total visit time, I have performed more than 50% of this visit. Patient Condition at Discharge: Stable Plan - Discharge Summary Discharge Rx Participant: No New Discharge Prescriptions: New Aspirin 81 mg PO DAILY #30 tab atenoloL [Tenormin] 50 mg PO DAILY #30 tab Atorvastatin [Lipitor] 40 mg PO DAILY #30 tab Nitroglycerin Sl Tabs [Nitrostat] 0.4 mg SUBLINGUAL Q5M PRN #20 tab PRN Reason: Chest Pain Discontinued atenoloL 100 mg PO DAILY Discharge Medication List Aspirin 81 mg PO DAILY #30 tab 01/24/23 [Rx] Atorvastatin [Lipitor] 40 mg PO DAILY #30 tab 01/24/23 [Rx] Nitroglycerin Sl Tabs [Nitrostat] 0.4 mg SUBLINGUAL Q5M PRN #20 tab 01/24/23 [Rx] atenoloL [Tenormin] 50 mg PO DAILY #30 tab 01/24/23 [Rx] Follow up Appointment(s)/Referral(s): Michele Fritz MD [Primary Care Provider] - 1-2 days Chano Soni MD [STAFF PHYSICIAN] - 01/27/23 (In [facility]) Ambulatory/Diagnostic Orders: Basic Metabolic Panel [LAB.AMB] Time Frame: 3 Days, Location: None Selected Patient Instructions/Handouts: After Radial Heart Catheterization (GEN), Stress Echocardiogram (DC) Discharge/Stand Alone Forms: Who Do I Call?, Community Resources, Outpatient Counseling Discharge Disposition: HOME SELF-CARE
== END 2023-01-24 19:08 | disposition home or self-care (01) | DRG 287 ==
LOC: EC 09:56 → 6NMEDSUR 12:27 → OBSVTOIN 01-24 09:47
PROVIDERS: ADMIT Internal Medicine; ATTEND Internal Medicine
PROC: B2111ZZ Fluoroscopy of Multiple Coronary Arteries using Low Osmolar Contrast (ICD-10-PCS; 2023-01-24)
PROC: 4A023N7 Measurement of Cardiac Sampling and Pressure, Left Heart, Percutaneous Approach (ICD-10-PCS; principal; 2023-01-24 10:30)
DX: I25.3 Aneurysm of heart (principal); I08.0 Rheumatic disorders of both mitral and aortic valves; I10 Essential (primary) hypertension; R07.89 Other chest pain; R00.1 Bradycardia, unspecified; Z91.040 Latex allergy status; Z82.49 Family history of ischemic heart disease and other diseases of the circulatory system
CPT/HCPCS: 36415; 71046; 80048; 80053; 80061; 83735; 83880; 84484; 85025; 85027; 85379; 85610; 85730; 93005; 93306; 93351; 93458; 99285

== ENCOUNTER 2023-07-03 04:04 | Inpatient (IN) | payer MEDICARE ==
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
[2023-07-03 04:37] LABS: Basophils % (A) 1 %; Eosinophils # (A) 0.1 k/uL (0-0.7); Eosinophils % (A) 1 %; HCT 40.4 % (34.0-46.0); HGB 14.1 gm/dL (11.4-16.0); Lymphocytes # (A) 1.2 k/uL (1.0-4.8); Lymphocytes % (A) 31 %; MCH 33.3 pg (25.0-35.0); MCHC 34.9 g/dL (31.0-37.0); MCV 95.3 fL (80.0-100.0); Mean Platelet Volume 8.4; Monocytes # (A) 0.3 k/uL (0-1.0); Monocytes % (A) 7 %; Neutrophils # (A) 2.2 k/uL (1.3-7.7); Neutrophils % (A) 58 %; Platelet Count 208 k/uL (150-450); RBC 4.23 m/uL (3.80-5.40); RDW 12.3 % (11.5-15.5); WBC 3.9 k/uL (3.8-10.6)
[2023-07-03 04:45] LABS: INR 0.9 (<1.2); Partial Thromboplastin Time 23.2 sec (22.0-30.0); Prothrombin Time 10.4 sec (10.0-12.5)
[2023-07-03 05:06] LABS: ALT 19 U/L (4-34); AST 23 U/L (14-36); African American GFR (CKD) >90 (>60 ml/min/1.73 sqM); Albumin 4.3 g/dL (3.5-5.0); Alkaline Phosphatase 83 U/L (38-126); Anion Gap 10 mmol/L; Blood Urea Nitrogen 20 mg/dL (7-17); Calcium 9.3 mg/dL (8.4-10.2); Carbon Dioxide 21 mmol/L (22-30); Chloride 108 mmol/L (98-107); Glucose 114 mg/dL (74-99); Lipase 218 U/L (23-300); Magnesium 1.8 mg/dL (1.6-2.3); Non-African American GFR(CKD) 84 (>60 ml/min/1.73 sqM); Potassium 4.2 mmol/L (3.5-5.1); Sodium 139 mmol/L (137-145); Total Bilirubin 0.4 mg/dL (0.2-1.3); Total Protein 7.1 g/dL (6.3-8.2)
[2023-07-03 05:15] LABS: NT-Pro-B-Type Natriuretic Pept 127 pg/mL
[2023-07-03] MEDS: KETOROLAC 15 MG/ML 1 ML VIAL IVP STA (05:55)
[2023-07-03] MEDS: MORPHINE SULFATE 4 MG/ML SYRINGE IVP STA (05:55)
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
[2023-07-03] MEDS ORDERED: HEPARIN SODIUM 1,000 UN/ML (10ML VL) IV PRN (08:07)
[2023-07-03] MEDS ORDERED: NALOXONE 0.4 MG/ML 1 ML VIAL IV PRN (08:14)
[2023-07-03] MEDS: HEPARIN SODIUM 1,000 UN/ML (10ML VL) IV ONE (08:30)
[2023-07-03] MEDS: HEPARIN SOD,PORK IN 0.45% NACL 25,000 UNIT in 0.45% NACL 1 250ML.BAG IV SCH (08:31)
[2023-07-03] MEDS: SODIUM CHLORIDE 0.9% 1,000 ML IV SCH (08:33)
[2023-07-03] MEDS ORDERED: NITROGLYCERIN SL TABS 0.4 MG TAB SUBLINGUAL PRN (09:43)
[2023-07-03] MEDS: atenoloL 50 MG TAB PO SCH (10:56)
[2023-07-03] MEDS: ACETAMINOPHEN TAB 325 MG TAB PO SCH (13:00)
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
[2023-07-03] MEDS ORDERED: LACTULOSE 20 GM/30 ML CUP PO PRN (15:28)
[2023-07-03] MEDS ORDERED: CALCIUM CARBONATE 500 MG CHEWABLE PO PRN (15:28)
[2023-07-03] MEDS ORDERED: ONDANSETRON 4 MG/2 ML VIAL IVP PRN (15:28)
[2023-07-03] MEDS ORDERED: TEMAZEPAM 15 MG CAP PO PRN (15:28)
[2023-07-03] MEDS ORDERED: ALPRAZolam 0.25 MG TAB PO PRN (15:28)
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
[2023-07-03] MEDS: CHLORTHALIDONE 25 MG TAB PO SCH (15:41)
--- NOTE | 2023-07-03 15:51 | US ---
EXAMINATION TYPE: US venous doppler duplex LE BI DATE OF EXAM: 07/03/2023 12:35 PM COMPARISON: NONE CLINICAL INDICATION: Female, 72 years old with history of r/o DVT; PE. On IV heparin. No redness or swelling. SIDE PERFORMED: Bilateral TECHNIQUE: The lower extremity deep venous system is examined utilizing real time linear array sonog blanca with graded compression, doppler sonography and color-flow sonography. VESSELS IMAGED: Common Femoral Vein Deep Femoral Vein Greater Saphenous Vein * Femoral Vein Popliteal Vein Small Saphenous Vein * Proximal Calf Veins (* superficial vessels) Right Leg: Negative for DVT Left Leg: Negative for DVT IMPRESSION: No evidence for DVT within the bilateral lower extremities imaged from the groin to the upper calves.
[2023-07-03] MEDS: Rivaroxaban Initiation Dose--VTE 15 MG TAB PO SCH (21:21)
[2023-07-04] MEDS: HYDROCORTISONE 1% CREAM 30 GM TUBE TOPICAL PRN (05:13)
[2023-07-04 08:21] VITALS: TEMP 98.4
[2023-07-04 12:14] VITALS: BP 143/75; PULSE 65; RESP 16
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
== END 2023-07-04 15:09 | disposition home or self-care (01) | DRG 564 ==
LOC: EC 04:04 → 3SCARD 08:14
PROVIDERS: ADMIT Hospitalist; ATTEND Hospitalist
DX: S22.20XA Unspecified fracture of sternum, initial encounter for closed fracture (principal); I26.99 Other pulmonary embolism without acute cor pulmonale; I71.21 Aneurysm of the ascending aorta, without rupture; I10 Essential (primary) hypertension; F41.8 Other specified anxiety disorders; V89.2XXA Person injured in unspecified motor-vehicle accident, traffic, initial encounter; Y92.410 Unspecified street and highway as the place of occurrence of the external cause; Z79.899 Other long term (current) drug therapy; Z91.040 Latex allergy status
CPT/HCPCS: 36415; 71046; 71120; 71275; 80053; 83690; 83735; 83880; 84484; 85025; 85610; 85730; 93005; 93970; 96365; 96366; 96375; 99285

== ENCOUNTER → 2023-07-16 | Outpatient (CLI) | payer MEDICARE | END | disposition home or self-care (01) | LOC: LABWHC1 11:13 | PROVIDERS: ATTEND Internal Medicine | DX: I26.99 Other pulmonary embolism without acute cor pulmonale (principal) | CPT/HCPCS: 36415; 85379 ==

== ENCOUNTER 2023-08-25 19:43 | Emergency (ER) | payer MEDICARE ==
[2023-08-25 19:53] VITALS: TEMP 98.4
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
--- NOTE | 2023-08-25 21:42 | CT ---
EXAMINATION TYPE: CT abdomen pelvis wo con DATE OF EXAM: 08/25/2023 HISTORY: LOW BACK PAIN CT DLP: 579.4 mGycm. Automated Exposure Control for Dose Reduction was Utilized. TECHNIQUE: CT scan of the abdomen and pelvis is performed without oral or IV contrast. COMPARISON: None FINDINGS: The lungs are clear. There is surgical absence of the gallbladder. There is no biliary ductal dilatation. There is no organomegaly of the liver, pancreas, spleen or adrenal glands. There is a 4.8 mm nonobstructing right renal calcification. There are no left renal calcifications. T here is no hydronephrosis. The caliber of the abdominal aorta is normal and there is no retroperitoneal adenopathy or hemorrhage . The bowel loops are normal in caliber is no evidence of obstruction. No inflammatory changes are iden tified in the mesentery and there is no free intraperitoneal air or fluid. There is no pelvic mass, free fluid, abscess or adenopathy. The osseous structures and soft tissues are unremarkable. IMPRESSION: 4.8 mm nonobstructing right renal calcification. No other significant abnormality seen.
[2023-08-25] MEDS: ACETAMINOPHEN TAB 500 MG TAB PO STA (21:46)
[2023-08-25 21:49] VITALS: PULSE 53; RESP 16
[2023-08-25] MEDS: SODIUM CHLORIDE 0.9% 1,000 ML BAG IV STA (22:25)
[2023-08-25 22:29] LABS: Basophils % (A) 1 %; Eosinophils # (A) 0.1 k/uL (0-0.7); Eosinophils % (A) 2 %; HCT 40.5 % (34.0-46.0); HGB 13.4 gm/dL (11.4-16.0); Lymphocytes # (A) 1.5 k/uL (1.0-4.8); Lymphocytes % (A) 36 %; MCH 32.3 pg (25.0-35.0); MCHC 33.1 g/dL (31.0-37.0); MCV 97.6 fL (80.0-100.0); Mean Platelet Volume 7.8; Monocytes # (A) 0.3 k/uL (0-1.0); Monocytes % (A) 7 %; Neutrophils # (A) 2.1 k/uL (1.3-7.7); Neutrophils % (A) 51 %; Platelet Count 195 k/uL (150-450); RBC 4.15 m/uL (3.80-5.40); RDW 12.1 % (11.5-15.5); WBC 4.2 k/uL (3.8-10.6)
[2023-08-25 22:43] LABS: Appearance,Urine Clear (Clear); Bilirubin,Urine Negative (Negative); Blood,Urine Small (Negative); Calcium Oxalate Crystals,Urine Occasional /hpf; Color,Urine Light Yellow; Glucose,Urine (UA) Negative (Negative); Ketones,Urine Negative (Negative); Leukocyte Esterase,Urine Trace (Negative); Nitrite,Urine Negative (Negative); PH, Urine 5.5 (5.0-8.0); Protein,Urine Negative (Negative); RBC,Urine 5 /hpf (0-5); Specific Gravity,Urine 1.026 (1.001-1.035); Squamous Epithelial Cell,Urine <1 /hpf (0-4); Urobilinogen,Urine <2.0 mg/dL (<2.0); WBC,Urine 8 /hpf (0-5)
[2023-08-25] MEDS: KETOROLAC 15 MG/ML 1 ML VIAL IVP STA (22:43)
[2023-08-25 22:48] LABS: ALT 27 U/L (4-34); AST 30 U/L (14-36); African American GFR (CKD) >90 (>60 ml/min/1.73 sqM); Albumin 4.1 g/dL (3.5-5.0); Alkaline Phosphatase 87 U/L (38-126); Anion Gap 5 mmol/L; Blood Urea Nitrogen 23 mg/dL (7-17); Calcium 9.2 mg/dL (8.4-10.2); Carbon Dioxide 24 mmol/L (22-30); Chloride 110 mmol/L (98-107); Glucose 93 mg/dL (74-99); Non-African American GFR(CKD) 87 (>60 ml/min/1.73 sqM); Potassium 4.2 mmol/L (3.5-5.1); Sodium 139 mmol/L (137-145); Total Bilirubin 0.4 mg/dL (0.2-1.3); Total Protein 6.7 g/dL (6.3-8.2)
[2023-08-25 23:15] VITALS: BP 169/73
== END 2023-08-25 23:18 | disposition home or self-care (01) ==
LOC: EC 19:43
DX: M54.50 Low back pain, unspecified (principal); Z90.49 Acquired absence of other specified parts of digestive tract; Z91.040 Latex allergy status
CPT/HCPCS: 36415; 80053; 85025; 81001; 74176; 99284; 96374; 96361; J1885